=== PATIENT | male | born 1950 | race Caucasian/White ===

== ENCOUNTER 2022-05-20 12:31 | Emergency (ER) | payer OTHER | END 2022-05-20 14:05 | disposition home or self-care (01) | LOC: NAV ERS 12:31 | DX: S63.502A Unspecified sprain of left wrist, initial encounter (principal); I10 Essential (primary) hypertension; K21.9 Gastro-esophageal reflux disease without esophagitis; Z79.899 Other long term (current) drug therapy; X58.XXXA Exposure to other specified factors, initial encounter ==